=== PATIENT | female | born 2000 ===

== ENCOUNTER 2018-01-05 16:45 | Emergency (ER) | payer SELFPAY ==
[~2018-01-05] VITALS: Ht 162.6 cm; Wt 50.0 kg
[2018-01-05 17:15] VITALS: BP_SYST 12; BP_SYST 129; BP_DIAS 68; PULSE 90; RESP 12; TEMP 99.1; O2SAT 98
== END 2018-01-05 20:17 | disposition left against medical advice (07) ==
LOC: NED 16:45
DX: R39.9 Unspecified symptoms and signs involving the genitourinary system (principal)
CPT/HCPCS: 99281